=== PATIENT | female | born 1950 | race Caucasian/White ===

== ENCOUNTER 2023-08-16 12:44 | Outpatient (RCR) | payer MEDICARE, OTHER, SELFPAY | END 2023-10-08 16:16 | disposition home or self-care (01) | LOC: PT 12:44 | PROVIDERS: PCP Family Medicine | DX: Z96.652 Presence of left artificial knee joint (principal) | CPT/HCPCS: 97010; 97110; 97112; 97140; 97162; 97530; G0283 ==